=== PATIENT | female | born 1965 | race Caucasian/White ===

== ENCOUNTER → 2025-03-12 08:42 | Outpatient (CLI) | payer OTHER, SELFPAY | PROVIDERS: PCP Physician Assistant Medical; Referring Provider Internal Medicine Cardiovascular Disease; Visit Provider Internal Medicine Cardiovascular Disease | DX: I25.10 Atherosclerotic heart disease of native coronary artery without angina pectoris (principal) | CPT/HCPCS: 78452; 93017; A9502; J2785 ==